=== PATIENT | female | born 1990 | race Caucasian/White ===

== ENCOUNTER 2020-11-16 21:52 | Emergency (ER) | payer OTHER ==
[~2020-11-16] VITALS: Ht 154.9 cm; Wt 69.4 kg
[2020-11-16 22:03] VITALS: BP_SYST 135
--- NOTE | 2020-11-16 22:03 | NUR ---
Patient ambulatory to bed 3 for evaluation
--- NOTE | 2020-11-16 22:14 | NUR ---
# 20 gauge angiocath placed to right ac. Use of asceptic technique. Opsite placed over site. Blood return noted. Flushed with 10 cc of normal saline. No evidence of infiltration noted. Patient tolerated well.
[2020-11-16] MEDS ORDERED: DEXAMETHASONE SOD PHOSPHATE 10 MG/ML VIAL IVP ONE (22:15)
[2020-11-16] MEDS ORDERED: NACL 0.9% 1,000 ML IV ONE (22:15)
[2020-11-16] MEDS ORDERED: EPINEPHrine 1 MG/ML VIAL IM ONE (22:15)
[2020-11-16] MEDS ORDERED: DIPHENHYDRAMINE INJ 50 MG/ML VIAL IVP ONE (22:15)
[2020-11-16] MEDS ORDERED: FAMOTIDINE PF 20 MG/2 ML VIAL IVP ONE (22:15)
--- NOTE | 2020-11-16 22:17 | NUR ---
Seen and examined by Dr. Moore, ER Attending
[2020-11-16] MEDS ORDERED: EPINEPHrine 1 MG/ML AMP ONE (22:28)
--- NOTE | 2020-11-16 22:40 | NUR ---
Medications given as ordered, health teaching provided and verbalized understanding
--- NOTE | 2020-11-16 23:15 | NUR ---
Ambulatory to the rest room, voided freely as claimed
[2020-11-16] MEDS ORDERED: LORA10TA7 PO (23:53)
[2020-11-16] MEDS ORDERED: EPIN0.3P3 IM (23:53)
[2020-11-16] MEDS ORDERED: PRED20TA PO (23:53)
--- NOTE | 2020-11-17 00:10 | NUR ---
Re-assesed by Dr. Moore
[2020-11-17 00:30] VITALS: BP_SYST 122
--- NOTE | 2020-11-17 00:30 | NUR ---
Patient given written and verbal discharge instructions and verbalizes understanding. ER MD discussed with patient the results and treatment provided. Patient in stable condition. ID arm band removed. IV catheter removed intact and dressing applied, no active bleeding. Rx of Epinephrine pen, Loratidine, Prednisone, given. Patient educated to follow up with PMD. Pain Scale 0/10. Opportunity for questions provided and answered. Medication side effect fact sheet provided.
== END 2020-11-17 00:30 | disposition home or self-care (01) ==
LOC: SED 21:52
DX: T78.40XA Allergy, unspecified, initial encounter (principal); Z79.899 Other long term (current) drug therapy; X58.XXXA Exposure to other specified factors, initial encounter
CPT/HCPCS: 96361; 96372; 96374; 96375; 99284; J0171; J1200; J3490; J7030